=== PATIENT | male | born 1980 | race American Indian/Alaskan Native ===

== ENCOUNTER 2019-07-25 21:42 | Inpatient (IN) | payer MEDICAID ==
--- NOTE | 2019-07-25 21:50 | Consultation ---
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 His main complaint is difficulty breathing and chest pressure. Patient's mother at bedside.Motor deficits are pre-existing and nearly at his baseline. All questions answered. CT head reviewed and case discussed with ED staff. Medications and Allergies Allergies Allergy/AdvReac Type Severity Reaction Status Date / Time No Known Allergies Allergy Verified 01/26/15 00:22 Home Medications Medication Instructions Recorded Confirmed Last Taken Type Docusate Sodium [Colace] 100 mg PO TID #30 capsule 01/26/15 Unknown Rx carBAMazepine XR [TEGretol Xr] 600 mg PO BID 01/26/15 01/26/15 Unknown History levETIRAcetam [Keppra] 500 mg PO BID 01/26/15 01/26/15 Unknown History - Level of Consciousness 1a. Level of Consciousness: alert/keenly responsive - LOC Questions 1b. LOC Questions: answers both correctly - LOC Command 1c. LOC Commands: performs tasks correctly - Best Gaze 2. Best Gaze: normal - Visual 3. Visual: no visual loss - Facial Palsy 4. Facial Palsy: normal symmetrical movement - Motor Arm 5a. Motor Arm Left: no movement 5b. Motor Arm Right: no drift - Motor Leg 6a. Motor Leg Left: drift 6b. Motor Leg Right: no drift - Limb Ataxia 7. Limb Ataxia: absent - Sensory 8. Sensory: normal - Best Language 9. Best Language: no aphasia - Dysarthria 10. Dysarthria: mild/moderate dysarthria - Extinction and Inattention 11. Extinction/Inattention: no abnormality (Motor deficits are at baseline) - Scoring Total Score: 6 Stroke Severity: Moderate Stroke Assessment and Plan [facility] Tele[facility]urology Consult Services Impression: Dyspnea and Chest Pressure. Possible Recrudescence. R/O Stroke Differential Diagnosis: 1. Cardioembolic stroke 2. Small vessel disease/lacune 3. Thromboembolic, [id number] mechanism 4. Hypercoagulable state-related infarct 5. Thrombotic mechanism, large artery disease 6. Transient ischemic attack Comments: Last known well: 1931 Door time:2139 [facility] contacted: 2133 [facility] at bedside: 2135 NIHSS assessment time:2149 Needle time:TPA not considered due to h/o ICH. Motor deficits are pretty much at baseline Thrombectomy not considered since large proximal intracranial vessel occlusion is not suspected Patient was informed the Neurology Consult would happen via TeleHealth consult by way of interactive audio and video telecommunications and consented to receiving care in this manner. Discussion: Our recommendations are outlined below. Recommendations: Chest pain/pressure and Dyspnea work-up as per ED and primary team ASA if no contraindications, IV fluids and permissive hypertension (Keep BP < 220/110) Neurochecks PT/OT/ST DVT prophylaxis Follow up with Neurology for further testing/evaluation Medical Decision Making: - Extensive number of diagnosis or management options are considered above. - Extensive amount of complex data reviewed. - High risk of complication and/or morbidity or mortality are associated with differential diagnostic considerations above. - There may be uncertain outcome and increased probability of prolonged functional impairment or high probability of severe prolonged functional impairment associated with some of these differential diagnosis. Medical Data Reviewed: 1.Data reviewed include clinical labs, radiology, Medical Tests; 2.Tests results discussed w/performing or interpreting physician; 3.Obtaining/reviewing old medical records; 4.Obtaining case history from another source; 5.Independent review of image, tracing or specimen.
--- NOTE | 2019-07-25 22:14 | Cat Scan Report ---
CT head/brain wo con INDICATION: MAIN: CODE STROKE CALL [phone]. TECHNIQUE: Routine CT head without contrast. Sagittal and coronal reformatted images were obtained. A ll CT scans at this location are performed using CT dose reduction for ALARA by means of automated ex posure control. COMPARISON: Previous CT images are not available at this time for comparison. FINDINGS: I do not see hemorrhage (intracerebral, subdural, epidural or subarachnoid) are hemorrhagic lesion. I do not see CT findings to suggest acute territorial infarction. Basal ganglia are normal. I do not s ee CT findings to suggest occluded or thrombosed internal carotid artery terminus and middle cerebral artery. Encephalomalacia is seen in the right superior frontal gyrus. Craniotomy changes are seen. I do not see an acute parenchymal lesion in the brain There may be a small chronic right thalamic lacune. I do not see CT findings to suggest acute finding s in the basal ganglia. CRANIOCERVICAL JUNCTION: No significant abnormality. ORBITS: No significant abnormality of visualized orbits. SINUSES / MASTOIDS: No significant abnormality of the visualized paranasal sinuses or mastoid air esthela ls. ADDITIONAL FINDINGS: None. IMPRESSION: I do not see an acute parenchymal lesion in the brain I have discussed findings with Dr. Ruth at the emergency Department at 9:10 PM CDT. Signer Name: Cesar Sutton MD Signed: 07/25/2019 10:10 PM Workstation Name: [id number]
[2019-07-25 22:24] LABS: Basophils % (Auto) 0.5 % (0.0-1.8); Eosinophils # (Auto) 0.1 K/mm3 (0.0-0.4); Eosinophils % (Auto) 1.8 % (0.0-4.3); Hematocrit 34.4 % (35.5-45.6); Hemoglobin 11.5 gm/dl (11.8-15.2); Lymphocytes # (Auto) 1.2 K/mm3 (1.2-5.4); Lymphocytes % (Auto) 32.5 % (13.4-35.0); Mean Corpuscular HGB Conc 34 % (32-34); Monocytes # (Auto) 0.4 K/mm3 (0.0-0.8); Monocytes % (Auto) 10.5 % (0.0-7.3); Platelet Count 202 K/mm3 (140-440); Red Blood Count 5.14 M/mm3 (3.65-5.03); Red Cell Distribution Width 14.7 % (13.2-15.2)
[2019-07-25 22:43] LABS: Alanine Aminotransferase 13 units/L (7-56); Albumin 4.5 g/dL (3.9-5); BUN/Creatinine Ratio 7; Blood Urea Nitrogen 6 mg/dL (9-20); Hemolysis Index 18; Mean Corpuscular Volume 67 fl (84-94)
[2019-07-25 22:47] LABS: INR 1.16 (0.87-1.13)
[2019-07-25 22:48] LABS: Partial Thromboplastin Time 29.2 Sec. (24.2-36.6); Thrombin Time 16.4 Sec. (15.1-19.6)
--- NOTE | 2019-07-25 22:48 | XRay Report ---
CHEST 1 VIEW INDICATION: vertigo chest pain. COMPARISON: None. FINDINGS: Support devices: None. Heart: Within normal limits. Lungs/Pleura: No acute air space or interstitial disease. Additional findings: None. IMPRESSION: No acute abnormality. Signer Name: Flynn Stuart MD Signed: 07/25/2019 10:44 PM Workstation Name: [id number]
[2019-07-25 23:12] LABS: Creatine Kinase MB < 1.0 ng/mL (0.0-4.0)
[2019-07-25] MEDS ORDERED: NACL 0.9% 1000 ML 1,000 ML ONE (23:27)
[2019-07-25] MEDS ORDERED: NACL 0.9% 1000 ML 1,000 ML IV ONE (23:32)
[2019-07-26] MEDS ORDERED: ASPIRIN PO ONE (00:50)
--- NOTE | 2019-07-26 01:11 | Emergency Department Report ---
ED Neuro Deficit HPI - General Chief Complaint: Dizziness Stated Complaint: POSS STROKE Time Seen by Provider: 07/25/19 21:46 Source: EMS Mode of arrival: Stretcher Limitations: Physical Limitation - History of Present Illness Initial Comments: Mr. Feliz is a 39-year-old male with history of TIA, intracranial hemorrhage 1998, benign intracranial tumor status post craniotomy 2013, seizure disorder presents with slurred speech, dizziness inability to walk. Sudden onset 2 hours prior to arrival. He has been hot. He felt dehydrated. His home has not had air conditioning. He also has shortness of breath as if he could not breathe. Mild chest discomfort. He is followed by Dr. Stevenson radiologist oncologist [place]. He recently moved back to [place] from [place]. He does not have he had a neurologist or primary care physician. He was evaluated twice for TIA this year at hospital in [place]. Mother noticed slurred speech and dizziness sudden onset while talking to her son. She contacted EMS. Has left upper extremity weakness due to previous neurological condition including intracranial hemorrhage, brain tumor craniotomy. -: Sudden, hour(s) (2) Location: speech, ataxia History of same: Yes Place: home Severity: moderate Improves With: time Worsens With: none On Anticoagulants: No Context: sudden onset Associated Symptoms: chest pain, shortness of breath Treatments Prior to Arrival: none - Related Data Home Medications: Home Medications Medication Instructions Recorded Confirmed Last Taken carBAMazepine XR [TEGretol Xr] 600 mg PO BID 01/26/15 01/26/15 Unknown levETIRAcetam [Keppra] 500 mg PO BID 01/26/15 01/26/15 Unknown Previous Rx's Medication Instructions Recorded Last Taken Type Docusate Sodium [Colace] 100 mg PO TID #30 capsule 01/26/15 Unknown Rx Allergies/Adverse Reactions: Allergies Allergy/AdvReac Type Severity Reaction Status Date / Time No Known Allergies Allergy Verified 01/26/15 00:22 ED Review of Systems ROS: Stated complaint: POSS STROKE Other details as noted in HPI Comment: All other systems reviewed and negative Constitutional: malaise. denies: fever Respiratory: shortness of breath Cardiovascular: chest pain Neurological: abnormal gait, vertigo, other (slurred speech) ED Past Medical Hx - Past Medical History Previous Medical History?: Yes (slurred speechslurred speech) Hx CVA: Yes (LEFT SIDE weakness) Hx Seizures: Yes Additional medical history: TUMOR ON BRAIN - Surgical History Past Surgical History?: Yes Additional Surgical History: Brain tumor removal (2013) - Social History Smoking Status: Never Smoker - Medications Home Medications: Home Medications Medication Instructions Recorded Confirmed Last Taken Type Docusate Sodium [Colace] 100 mg PO TID #30 capsule 01/26/15 Unknown Rx carBAMazepine XR [TEGretol Xr] 600 mg PO BID 01/26/15 01/26/15 Unknown History levETIRAcetam [Keppra] 500 mg PO BID 01/26/15 01/26/15 Unknown History ED Neuro Physical Exam - General Limitations: Physical Limitation General appearance: alert, in no apparent distress Suspected Stroke: Yes - Head Head exam: Present: atraumatic, normocephalic - Eye Eye exam: Present: normal appearance - ENT ENT exam: Present: mucous membranes moist - Neck Neck exam: Present: normal inspection, full ROM - Respiratory Respiratory exam: Present: normal lung sounds bilaterally. Absent: respiratory distress, wheezes, rales, rhonchi - Cardiovascular Cardiovascular Exam: Present: regular rate, normal rhythm, normal heart sounds. Absent: systolic murmur, diastolic murmur, rubs, gallop - GI/Abdominal GI/Abdominal exam: Present: soft, normal bowel sounds. Absent: distended, tenderness, guarding, rebound - Rectal Rectal exam: Present: deferred - Extremities Exam Extremities exam: Present: other (LUE contracted) - Back Exam Back exam: Present: normal inspection - Neurological Exam Neurological exam: Present: alert, oriented X3 - NIHSS Assessment Interval: Baseline 1a. Level of Consciousness: alert/keenly responsive 1b. LOC Questions: answers both correctly 1c. LOC Commands: performs tasks correctly 2. Best Gaze: normal 3. Visual: no visual loss 4. Facial Palsy: minor paralysis 5b. Motor Arm Right: no drift 5a. Motor Arm Left: no gravity effort 6a. Motor Leg Left: no drift 6b. Motor Leg Right: no drift 7. Limb Ataxia: absent 8. Sensory: normal 9. Best Language: no aphasia 10. Dysarthria: mild/moderate dysarthria 11. Extinction/Inattention: no abnormality Total Score: 5 Stroke Severity: Moderate Stroke - Psychiatric Psychiatric exam: Present: normal affect, normal mood - Skin Skin exam: Present: warm, dry, intact, normal color. Absent: rash ED Course Vital Signs 07/25/19 07/25/19 07/25/19 22:02 22:09 22:15 Temperature 98.8 F Pulse Rate 84 71 Respiratory 18 14 Rate Blood Pressure 146/98 O2 Sat by Pulse 96 93 Oximetry 07/25/19 07/25/19 07/25/19 22:31 22:45 23:00 Temperature Pulse Rate 89 73 82 Respiratory 18 12 17 Rate Blood Pressure 146/98 146/92 138/97 O2 Sat by Pulse 94 91 94 Oximetry 07/25/19 07/25/19 07/25/19 23:15 23:30 23:45 Temperature Pulse Rate 78 80 68 Respiratory 16 16 16 Rate Blood Pressure 136/95 135/93 129/94 O2 Sat by Pulse 93 95 94 Oximetry 07/26/19 07/26/19 00:00 00:15 Temperature Pulse Rate 70 71 Respiratory 15 16 Rate Blood Pressure 127/90 133/90 O2 Sat by Pulse 97 100 Oximetry - Lab Data Result diagrams: 07/25/19 22:02 07/25/19 22:02 Lab Results 07/25/19 07/25/19 07/25/19 Range/Units 22:02 22:02 22:02 WBC 3.7 L (4.5-11.0) K/mm3 RBC 5.14 H (3.65-5.03) M/mm3 Hgb 11.5 L (11.8-15.2) gm/dl Hct 34.4 L (35.5-45.6) % MCV 67 L (84-94) fl MCH 22 L (28-32) pg MCHC 34 (32-34) % RDW 14.7 (13.2-15.2) % Plt Count 202 (140-440) K/mm3 Lymph % (Auto) 32.5 (13.4-35.0) % Hopkins % (Auto) 10.5 H (0.0-7.3) % Eos % (Auto) 1.8 (0.0-4.3) % Baso % (Auto) 0.5 (0.0-1.8) % Lymph # 1.2 (1.2-5.4) K/mm3 Hopkins # 0.4 (0.0-0.8) K/mm3 Eos # 0.1 (0.0-0.4) K/mm3 Baso # 0.0 (0.0-0.1) K/mm3 Seg Neutrophils % 54.7 (40.0-70.0) % Seg Neutrophils # 2.1 (1.8-7.7) K/mm3 PT 14.5 (12.2-14.9) Sec. INR 1.16 H (0.87-1.13) APTT 29.2 (24.2-36.6) Sec. Thrombin Time 16.4 (15.1-19.6) Sec. Sodium 139 (137-145) mmol/L Potassium 4.0 (3.6-5.0) mmol/L Chloride 100.1 (98-107) mmol/L Carbon Dioxide 25 (22-30) mmol/L Anion Gap 18 mmol/L BUN 6 L (9-20) mg/dL Creatinine 0.9 (0.8-1.5) mg/dL Estimated GFR > 60 ml/min BUN/Creatinine Ratio 7 % Glucose 96 (75-100) mg/dL Calcium 9.0 (8.4-10.2) mg/dL Total Bilirubin 0.20 (0.1-1.2) mg/dL AST 15 (5-40) units/L ALT 13 (7-56) units/L Alkaline Phosphatase 84 (35-129) units/L Total Creatine Kinase 85 (55-170) units/L CK-MB (CK-2) < 1.0 (0.0-4.0) ng/mL CK-MB (CK-2) Rel Index 1.1 (0-4) Troponin T < 0.010 (0.00-0.029) ng/mL Total Protein 7.5 (6.3-8.2) g/dL Albumin 4.5 (3.9-5) g/dL Albumin/Globulin Ratio 1.5 % - EKG Data EKG shows normal: sinus rhythm, axis, intervals, QRS complexes, ST-T waves Rate: normal - Radiology Data Radiology results: report reviewed CT head: No acute parenchymal lesion in brain, there is encephalomalacia in the right superior frontal gyrus with craniotomy changes no evidence of hemorrhage or CT findings to suggest acute territorial infarction A portable chest x-ray: No acute abnormality - Medical Decision Making Mr. Feliz is a 39-year-old male history of TIA, seizure disorder, craniotomy, benign tumor and intracranial hemorrhage or presents with slurred speech and dizziness and inability to walk. He has baseline left upper extremity weakness. Chest pain shortness of breath unclear cause must consider ACS. PERC negative for pulmonary embolism. I do not suspect emergent cause of chest pain such as aortic dissection or pneumothorax. Chest pain is atypical for ACS. Prior to arrival, code stroke initiated. I evaluated patient alongside Teleneurologist Dr. Burns. Dr. Burns did not suspect large vessel occlusion. He was concerned for toxic metabolic process complicating baseline neuro deficits. I agree with this assessment. Clinical impression: TIA. I reassessed the patient prior to admission, he is back to baseline. His speech is more clear than prior. Mother states that he is back to normal. He received aspirin therapy. Due to history of intracranial hemorrhage and craniotomy, TPA is not indicated. Due to resolve symptoms TPA is not indicated. Admitted to the hospitalist service for further treatment and evaluation. - Thrombolytic Inclusion/Exclusion Thrombolytic Contraindications: Rapidily Improving s/s, Hx of ICH/AVM/Aneurysms Critical care attestation.: If time is entered above; I have spent that time in minutes in the direct care of this critically ill patient, excluding procedure time. ED Disposition Clinical Impression: TIA (transient ischemic attack), Chest pain, Seizure disorder Disposition: OP ADMIT IP TO THIS HOSP Is pt being admited?: Yes Does the pt Need Aspirin: No Condition: Stable
[2019-07-26] MEDS ORDERED: TYLENOL PO PRN (01:58)
--- NOTE | 2019-07-26 04:35 | History and Physical Report ---
CHIEF COMPLAINT: Dizziness, other complaint includes shortness of breath and unsteady gait. HISTORY OF PRESENT ILLNESS: The patient is a 39-year-old male with past medical history of TIA, intracranial hemorrhage in 1998 and benign intracranial tumor status post craniotomy in 2013. Also, the patient has past medical history of seizure disorder and presented with dizziness and unsteady gait that started last night. Also, there was history of slurred speech and difficulty with breathing and the patient's mother said that the patient could not walk without feeling like falling down and his speech was slurred and the patient was feeling very weak with dizziness and was complaining seriously about difficulty in breathing. The patient denied history of chest pain and denied history of nausea, vomiting or diaphoresis and was brought to the Emergency Room. PAST MEDICAL HISTORY: Pertinent for TIA, intracranial hemorrhage in 1998, benign intracranial tumor in 2013, seizure disorder and speech impairment. PAST SURGICAL HISTORY: Pertinent for craniotomy with tumor removal in 2013. FAMILY HISTORY: Noncontributory. SOCIAL HISTORY: The patient does not smoke, does not drink alcohol and does not use illicit drugs. MEDICATIONS: The patient is on Keppra 500 mg by mouth daily, Tegretol 600 mg by mouth daily and docusate sodium 100 mg by mouth 3 times daily. ALLERGIES: There are no known drug allergies. REVIEW OF SYSTEMS: CONSTITUTIONAL: There is no fever, no chills, no diaphoresis. HEENT: There is no headache or sore throat. CARDIOVASCULAR SYSTEM: There is no chest pain or orthopnea. RESPIRATORY SYSTEM: Shortness of breath is present. No cough. GASTROINTESTINAL SYSTEM: There is no nausea, no vomiting, no abdominal pain, diarrhea or constipation. NEUROLOGICAL SYSTEM: Dizziness present. Unsteady gait present, speech impairment or slurred speech present, generalized weakness noted. No altered mental status. MUSCULOSKELETAL SYSTEM: There is no joint pain or swelling. DERMATOLOGICAL SYSTEM: There is no skin rash or itching. GENITOURINARY SYSTEM: There is no dysuria, hematuria, or flank pain. Rest of system review is normal. PHYSICAL EXAMINATION: GENERAL: At the time of exam, the patient was found to be alert, oriented x 3 and able to talk and communicate and was not in acute distress. VITAL SIGNS: At the initial time of presentation showed temperature of 98.8 degrees Fahrenheit, pulse of 84, respirations 18, blood pressure 146/98, O2 sat of 96% on room air. HEENT: Showed pupils to be equal, round, reactive to light and accommodating. Extraocular muscles are intact. NECK: Supple with no JVD or carotid bruit. CARDIOVASCULAR SYSTEM: Showed normal first and second heart sounds with no gallops or murmurs. RESPIRATORY SYSTEM: Showed good air entry on both sides of the lungs with no abnormal breath sounds. GASTROINTESTINAL SYSTEM: Show abdomen to be full, soft, nontender with no organomegaly or rigidity. NEUROLOGIC: Shows the patient to be alert, oriented x 3, able to communicate with mild weakness on the left side compared to the right, which is chronic with muscle of grade 5/6 on the left upper and lower limbs compared to grade 6/6 on the right upper and lower limbs. There is no loss of sensory function. MUSCULOSKELETAL SYSTEM: Show no joint swelling or tenderness. DERMATOLOGICAL SYSTEM: Showed no skin rash. GENITOURINARY SYSTEM: Show no costovertebral angle tenderness. PERTINENT LABORATORY AND IMAGING STUDIES: The patient has CT of the head without contrast done that shows no acute intracranial lesion. Also, the patient had chest x-ray done that shows no acute abnormality. The patient's lab result shows CBC with low white count of 3700, slightly low hemoglobin of 11.5 and slightly low hematocrit of 34.4 with low MCV of 67. The patient's CBC differential shows slight increase in monocyte count of 10.5%. Coagulation studies were unremarkable. The patient's chemistry came back unremarkable. Cardiac enzyme was normal. DIAGNOSES: 1. Transient ischemic attack. 2. Dyspnea. PLAN OF CARE: 1. The patient will be admitted to telemetry. 2. The patient will have MRI of the brain without contrast. 3. The patient will have bilateral carotid Doppler done this morning and also have 2D echo done this morning. 4. The patient will have Neurology consult with Dr. Ruslan Dunne and will have physical therapy and speech therapy evaluation. 5. The patient will be n.p.o. until swallow test is passed. 6. The patient will have cardiac enzymes checked serially every 6 hours x 2 more levels. 7. The patient will be on aspirin 325 mg by mouth daily and will be on his home medication as shown in the medication reconciliation section. 8. The patient will be on oxygen by nasal cannula at 2 liters per minute and DVT prophylaxis will be through sequential compressive device. [facility]# [id number] OCN/NTS
[2019-07-26 06:45] LABS: Creatine Kinase MB < 1.0 ng/mL (0.0-4.0)
[2019-07-26] MEDS: COLACE PO SCH ×3 (08:00→21:54)
[2019-07-26] MEDS ORDERED: ASPIRIN PO SCH (10:00)
[2019-07-26] MEDS ORDERED: KEPPRA PO SCH (10:00)
[2019-07-26] MEDS: NON-FORMULARY PO SCH ×4 (10:15→21:55)
[2019-07-26 13:36] LABS: Chol/HDL Ratio 3.03 %
[2019-07-26 13:38] LABS: Creatine Kinase MB < 1.0 ng/mL (0.0-4.0)
--- NOTE | 2019-07-26 15:58 | Event Note ---
Date: 07/26/19 Patient with slurred speech, dizziness, unsteady gait. I have seen and examined him. For MRI Brain.
--- NOTE | 2019-07-26 17:21 | Consultation ---
History of Present Illness Consult date: 07/26/19 Reason for Consult: Possible TIA Chief complaint: Slurred speech, imbalanced gait, SOB. 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 He presents yesterday with acute onset of sensation of hot flashes, shortness of breath, associated with slurred speech, dizziness, and unsteady gait. The symptoms lasted for about 2 hours. The patient was then brought to the emergency room by his mother. He states that he has been compliant with his antiseizure medications. Patient states that he attempted to walk today, and that he continues to have some element of unsteadiness in gait. Past History Past Medical History: other (history of ICH in 1998 with residual left-sided hemiparesis, history of seizures on Keppra and Tegretol, history of benign brain tumor status post resection) Social history: lives with family Family history: no significant family history Medications and Allergies Allergies Allergy/AdvReac Type Severity Reaction Status Date / Time No Known Allergies Allergy Verified 01/26/15 00:22 Home Medications Medication Instructions Recorded Confirmed Last Taken Type levETIRAcetam [Keppra] 500 mg PO BID 01/26/15 07/26/19 Unknown History carBAMazepine XR [TEGretol XR] 400 mg PO Q12H 07/26/19 07/26/19 Unknown History Active Meds: Active Medications Acetaminophen (Tylenol) 650 mg PO Q4H PRN PRN Reason: Headache Aspirin (Aspirin) 325 mg PO QDAY [facility] Last Admin: 07/26/19 10:16 Dose: 325 mg Documented by: Docusate Sodium (Colace) 100 mg PO TID [facility] Last Admin: 07/26/19 13:24 Dose: 100 mg Documented by: Miscellaneous Medication (Non-Formulary) 1 each PO BID [facility] Last Admin: 07/26/19 10:15 Dose: 1 each Documented by: Miscellaneous Medication (Non-Formulary) 1 each PO Q12H [facility] Last Admin: 07/26/19 10:15 Dose: 1 each Documented by: Review of Systems All systems: negative Respiratory: shortness of breath Neurological: vertigo, change in speech, gait dysfunction Physical Examination - Vital Signs Vital Signs: Vital Signs Pulse Resp Pulse Ox 84 18 96 07/25/19 22:02 07/25/19 22:02 07/25/19 22:02 - Physical Exam Narrative exam: Patient is awake, alert, oriented to self, place, situation. Pupils are equal, round, reactive to light. Visual brock full. Tongue midline, no facial asymmetry noted. Sensation bilaterally intact to light touch in the face. Patient noted to have baseline of left upper and lower extremity weakness, left upper extremity strength is 2 out of 5, left lower extremity is 4/5, right upper and lower extremities are 5 out 5. Patient noted to have contracture left upper extremity. 3+ reflexes in left upper and lower extremity, 2+ reflexes in right upper and lower extremity. Sensations bilaterally intact light touch. Finger to nose intact and right upper extremity. Unable to do [id number] on the left due to left upper extremity contracture. Patient noted have surgical scar on right scalp. - Constitutional General appearance: comfortable - EENT EENT: Present: ATNC, PERRL, mucous membranes moist, hearing intact, vision intact - Respiratory Respiratory: Present: lungs clear, normal breath sounds - Cardiovascular Cardiovascular: Present: regular rate, normal S1, normal S2 Extremities: Present: no peripheral edema bilatateraly, no clubbing, cyanosis - Gastrointestinal Gastrointestinal: Present: normoactive bowel sounds, soft, non-tender - Integumentary Integumentary: Present: normal - Psychiatric Psychiatric: Present: mood/affect appropriate Results - Laboratory Findings CBC and BMP: 07/25/19 22:02 07/25/19 22:02 Abnormal Lab Findings: Abnormal Labs 07/25/19 07/25/19 07/25/19 22:02 22:02 22:02 WBC 3.7 L RBC 5.14 H Hgb 11.5 L Hct 34.4 L MCV 67 L MCH 22 L [place] % (Auto) 10.5 H INR 1.16 H BUN 6 L Assessment and Plan Patient is a 39-year-old man with a 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 He presents yesterday with acute onset of sensation of hot flashes, shortness of breath, associated with slurred speech, dizziness, and unsteady gait. According the patient's clinical findings, it is possible that he has had a TIA or an acute ischemic stroke, however the patient was also noted to have shortness of breath and a hot flash during the episode. He states that he was feeling dehydrated at the time. Investigations for further diagnosis oriented to be done. Plan: 1. Possible TIA/stroke: - Check MRI brain - Check MRA head/neck - Cont. ASA 81mg daily. - LDL 109. Start lipitor 10mg daily with LDL goal <70. - Recommend PT/OT/ST - DVT Ppx: recommend lovenox. - Telemetry monitoring while in-house. Echocardiogram: Ejection fraction 50-55%, left atrium normal size, PFO positive on bubble study. 2. History of seizures: - Cont. home doses of keppra and tegretol. - Will continue to follow patient. Thank you for allowing me to take part in the care of this patient. Ruslan Dunne MD Neurology
--- NOTE | 2019-07-26 18:55 | Vascular Lab Report ---
"DUPLEX DOPPLER ULTRASOUND CAROTID, BILATERAL INDICATION: TIA. FINDINGS: RIGHT CAROTID: Minimal plaque identified Right CCA velocity: 65 cm/sec. Right ICA peak systolic velocity: 58 cm/sec. ICA/CCA PSV Ratio: 0.89. Right Vertebral Artery: Antegrade flow. LEFT CAROTID: Minimal plaque identified Left CCA velocity: 87 cm/sec. Left ICA peak systolic velocity: 59 cm/sec. ICA/CCA PSV Ratio: 0.68. Left Vertebral Artery: Antegrade flow. IMPRESSION: 1. Right Internal Carotid Artery: Less than 50% diameter stenosis. 2. Left Internal Carotid Artery: Less than 50% diameter stenosis. Velocity criteria are extrapolated from diameter data as defined by the Society of Radiologists in Ul trasound Consensus Conference, Radiology 2003; 229;340-346. Degree of Stenosis (%) || ICA PSV (cm/sec) || Plaque estimate (%) || ICA/CCA PSV Ratio Normal <125 None <2.0 <50 <125 <50 <2.0 50-69 125-230 50 2.0-4.0 70 but less than 100 >230 50 >4.0 Near occlusion High, low, or none visible variable Total occlusion None visible; no lumen N/A Signer Name: Ivan Connor MD Signed: 07/26/2019 6:50 PM Workstation Name: [id number]"
[2019-07-27] MEDS: COLACE PO SCH ×2 (09:46→16:23)
[2019-07-27] MEDS: NON-FORMULARY PO SCH ×2 (09:46→09:47)
[2019-07-27] MEDS ORDERED: HALFPRIN EC PO SCH (10:00)
[2019-07-27] MEDS ORDERED: ATIVAN IV ONE (13:08)
--- NOTE | 2019-07-27 14:59 | Progress Note ---
Hospitalist Physical - Constitutional Vitals: Temp Pulse Resp BP Pulse Ox 97.7 F 61 18 124/90 99 07/27/19 06:24 07/27/19 06:24 07/27/19 06:24 07/27/19 06:24 07/27/19 06:24 Results - Labs CBC & Chem 7: 07/25/19 22:02 07/25/19 22:02 Labs: Laboratory Last Values WBC 3.7 K/mm3 (4.5-11.0) L 07/25/19 22:02 RBC 5.14 M/mm3 (3.65-5.03) H 07/25/19 22:02 Hgb 11.5 gm/dl (11.8-15.2) L 07/25/19 22:02 Hct 34.4 % (35.5-45.6) L 07/25/19 22:02 MCV 67 fl (84-94) L 07/25/19 22:02 MCH 22 pg (28-32) L 07/25/19 22:02 MCHC 34 % (32-34) 07/25/19 22:02 RDW 14.7 % (13.2-15.2) 07/25/19 22:02 Plt Count 202 K/mm3 (140-440) 07/25/19 22:02 Lymph % (Auto) 32.5 % (13.4-35.0) 07/25/19 22:02 [place] % (Auto) 10.5 % (0.0-7.3) H 07/25/19 22:02 Eos % (Auto) 1.8 % (0.0-4.3) 07/25/19 22:02 Baso % (Auto) 0.5 % (0.0-1.8) 07/25/19 22:02 Lymph # 1.2 K/mm3 (1.2-5.4) 07/25/19 22:02 [place] # 0.4 K/mm3 (0.0-0.8) 07/25/19 22:02 Eos # 0.1 K/mm3 (0.0-0.4) 07/25/19 22:02 Baso # 0.0 K/mm3 (0.0-0.1) 07/25/19 22:02 Seg Neutrophils % 54.7 % (40.0-70.0) 07/25/19 22:02 Seg Neutrophils # 2.1 K/mm3 (1.8-7.7) 07/25/19 22:02 PT 14.5 Sec. (12.2-14.9) 07/25/19 22:02 INR 1.16 (0.87-1.13) H 07/25/19 22:02 APTT 29.2 Sec. (24.2-36.6) 07/25/19 22:02 16.4 Sec. (15.1-19.6) 07/25/19 22:02 Sodium 139 mmol/L (137-145) 07/25/19 22:02 Potassium 4.0 mmol/L (3.6-5.0) 07/25/19 22:02 Chloride 100.1 mmol/L (98-107) 07/25/19 22:02 Carbon Dioxide 25 mmol/L (22-30) 07/25/19 22:02 18 mmol/L 07/25/19 22:02 BUN 6 mg/dL (9-20) L 07/25/19 22:02 0.9 mg/dL (0.8-1.5) 07/25/19 22:02 Estimated GFR > 60 ml/min 07/25/19 22:02 7 % 07/25/19 22:02 Glucose 96 mg/dL (75-100) 07/25/19 22:02 Calcium 9.0 mg/dL (8.4-10.2) 07/25/19 22:02 0.20 mg/dL (0.1-1.2) 07/25/19 22:02 AST 15 units/L (5-40) 07/25/19 22:02 ALT 13 units/L (7-56) 07/25/19 22:02 84 units/L (35-129) 07/25/19 22:02 80 units/L (55-170) 07/26/19 12:52 CK-MB (CK-2) < 1.0 ng/mL (0.0-4.0) 07/26/19 12:52 CK-MB (CK-2) Rel Index 1.2 (0-4) 07/26/19 12:52 < 0.010 ng/mL (0.00-0.029) 07/26/19 12:52 7.5 g/dL (6.3-8.2) 07/25/19 22:02 4.5 g/dL (3.9-5) 07/25/19 22:02 1.5 % 07/25/19 22:02 Triglycerides 123 mg/dL (2-149) 07/26/19 12:52 Cholesterol 167 mg/dL (50-199) 07/26/19 12:52 109 mg/dL (50-130) 07/26/19 12:52 55 mg/dL (40-59) 07/26/19 12:52 3.03 % 07/26/19 12:52 Active Medications - Current Medications Current Medications: Generic Name Dose Route Start Last Admin Trade Name Freq PRN Reason Stop Dose Admin Acetaminophen 650 mg 07/26/19 01:58 Tylenol PO Q4H PRN Headache Aspirin 81 mg 07/27/19 10:00 07/27/19 09:46 Halfprin Ec PO 81 mg QDAY JACKELINE Administration Atorvastatin Calcium 10 mg 07/26/19 22:00 07/26/19 21:54 Lipitor PO 10 mg QHS JACKELINE Administration Docusate Sodium 100 mg 07/26/19 08:00 07/27/19 09:46 Colace PO 100 mg TID JACKELINE Administration Miscellaneous Medication 1 each 07/26/19 10:00 07/27/19 09:46 Non-Formulary PO 1 each BID [facility] Administration Miscellaneous Medication 1 each 07/26/19 10:00 07/27/19 09:47 Non-Formulary PO 1 each Q12H [facility] Administration
--- NOTE | 2019-07-27 15:31 | Progress Note ---
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 He presents yesterday with acute onset of sensation of hot flashes, shortness of breath, associated with slurred speech, dizziness, and unsteady gait. According the patient's clinical findings, it is possible that he has had a TIA or an acute ischemic stroke, however the patient was also noted to have shortness of breath and a hot flash during the episode. He states that he was feeling dehydrated at the time. Investigations for further diagnosis oriented to be done. Plan: 1. Possible TIA/stroke: - MRI brain did not reveal any evidence of infarct - MRA head/neck did not reveal any significant stenosis. - Cont. ASA 81mg daily. - LDL 109. Start lipitor 10mg daily with LDL goal <70. - Recommend PT/OT/ST - DVT Ppx: recommend lovenox. - Telemetry monitoring while in-house. Echocardiogram: Ejection fraction 50-55%, left atrium normal size, PFO positive on bubble study. 2. History of seizures: - Cont. keppra and tegretol. - Will consider increasing dose of keppra to 750mg BID, as episode may have been partial seizure as opposed to TIA. - Will continue to follow patient. Thank you for allowing me to take part in the care of this patient. Ruslan Dunne MD Neurology Subjective Date of service: 07/27/19 Principal diagnosis: Possible TIA Interval history: No acute events overnight. Patient feels back at baseline today. Objective - Exam Narrative Exam: Patient is awake, alert, oriented to self, place, situation. Pupils are equal, round, reactive to light. Visual brock full. Tongue midline, no facial asymmetry noted. Sensation bilaterally intact to light touch in the face. Patient noted to have baseline of left upper and lower extremity weakness, left upper extremity strength is 2 out of 5, left lower extremity is 4/5, right upper and lower extremities are 5 out 5. Patient noted to have contracture left upper extremity. 3+ reflexes in left upper and lower extremity, 2+ reflexes in right upper and lower extremity. Sensations bilaterally intact light touch. Finger to nose intact and right upper extremity. Unable to do [id number] on the left due to left upper extremity contracture. Patient noted have surgical scar on right scalp. - Vital Sign Vital Signs - 12hr 07/27/19 06:24 Temperature 97.7 F Pulse Rate 61 Respiratory 18 Rate Blood Pressure 124/90 O2 Sat by Pulse 99 Oximetry - General Apperance Constitutional: comfortable - EENT EENT: ATNC, PERRL, mucous membranes moist, hearing intact, vision intact - Respiratory Respiratory: lungs clear, normal breath sounds - Cardiovascular Cardiovascular: regular rate, normal S1, normal S2 Extremities: no peripheral edema bilat, no clubbing, cyanosis - Gastrointestinal Gastrointestinal: normoactive bowel sounds, soft, non-tender - Integumentary Integumentary: normal - Musculoskeletal Musculoskeletal: no fluid collection, no pain - Psychiatric Psychiatric: mood/affect appropriate - Laboratory Findings CBC and BMP: 07/25/19 22:02 07/25/19 22:02 Abnormal Lab Findings: Abnormal Labs 07/25/19 07/25/19 07/25/19 22:02 22:02 22:02 WBC 3.7 L RBC 5.14 H Hgb 11.5 L Hct 34.4 L MCV 67 L MCH 22 L [place] % (Auto) 10.5 H INR 1.16 H BUN 6 L
[2019-07-27] MEDS ORDERED: KEPPRA PO SCH (16:00)
--- NOTE | 2019-07-27 16:22 | Magnetic Resonance Report ---
MRI BRAIN WITHOUT CONTRAST INDICATION / CLINICAL INFORMATION: Transient ischemic attack.. TECHNIQUE: Multiplanar, multisequence MR images of the brain were obtained. COMPARISON: None available. FINDINGS: BRAIN / INTRACRANIAL CONTENTS: There is a high right craniotomy defect with underlying encephalomalac ia and ex vacuo dilatation of the right lateral ventricle. There appear to be interval evolutionary p ostsurgical changes from the previous MRI of 10/06/2011. However, there is a residual component of sandra rrounding gliosis there are also appear to be mild residual changes within the medial right thalamus. The brain otherwise appears to demonstrate appropriate signal characteristics for age. The diffusion imaging reveals no evidence of recent infarction. The ventricular system is otherwise appropriate in size and configuration. No developing extra-axial fluid collections are identified. There is subtle increased T1 weighted signal symmetrically within the medial cerebellum as well as th e inferior basal ganglia. The findings are nonspecific though may be related to mineral deposition. T he findings may also be seen with hepatic failure and long-term parenteral nutrition. CRANIOCERVICAL JUNCTION: No significant abnormality. VASCULAR FLOW-VOIDS: No significant abnormality. ORBITS: No significant abnormality of visualized orbits. SINUSES / MASTOIDS: No significant abnormality of the visualized paranasal sinuses or mastoid air esthela ls. ADDITIONAL FINDINGS: None. IMPRESSION: 1. Status post high right frontal craniotomy with underlying encephalomalacia which has evolved from the previous MRI of 10/06/2011. There is no evidence of recent infarction. Signer Name: Eric Gilman MD Signed: 07/27/2019 4:18 PM Workstation Name: [id number]
--- NOTE | 2019-07-27 16:27 | Magnetic Resonance Report ---
MRA head without contrast CLINICAL HISTORY: Transient ischemic attack, dizziness, unable to walk. FINDINGS: No previous exams are available for comparison. The motion degrades image quality. However, the intracranial vessels appear to demonstrate appropriate caliber without clear evidence of signifi cant focal stenosis by NASCET criteria. There appears be a smaller branch of vessel of the origin of the A1 segment of the left LESTER. Otherwise, there is no definitive MRA evidence of intracranial aneury sm. IMPRESSION: The motion degrades the image quality. However, the MRA of the head appears unremarkable without sign ificant focal stenosis involving intracranial vessels. Signer Name: Eric Gilman MD Signed: 07/27/2019 4:23 PM Workstation Name: [id number]
--- NOTE | 2019-07-27 16:29 | Magnetic Resonance Report ---
MR a neck without contrast CLINICAL HISTORY: Transient ischemic attack, dizziness, difficulty walking at. FINDINGS: No previous exams available for comparison. 3-D [id number] MRA of the neck was performe d at. There is no evidence of significant stenosis involving visualized carotid arteries by NASCET cr iteria. The vertebral arteries also demonstrate appropriate caliber without significant focal narrowi ng. IMPRESSION: There is no MRA evidence of significant stenosis involving the visualized carotid or vertebral arteri es at. Signer Name: Eric Gilman MD Signed: 07/27/2019 4:25 PM Workstation Name: [email or web address]
--- NOTE | 2019-07-27 17:02 | Discharge Summary ---
Providers - Providers Date of Admission: 07/26/19 01:50 Date of discharge: 07/27/19 Attending physician: DAVID GONZÁLES 07/26/19 06:00 Consult to Physician [CONS] Routine Comment: Consulting Provider: OSCAR REYES Physician Instructions: Reason For Exam: TIA Physical Therapy Evaluation and Treat [CONS] Routine Comment: Reason For Exam: TIA Speech Therapy Evaluation and Treat [CONS] Routine Reason For Exam: TIA Primary care physician: [facility] MD ALEXIA Hospitalization Condition: Fair Disposition: DC-01 TO HOME OR SELFCARE Core Measure Documentation - Palliative Care Palliative Care/ Comfort Measures: Not Applicable Exam - Constitutional Vitals: Temp Pulse Resp BP Pulse Ox 97.7 F 61 18 124/90 99 07/27/19 06:24 07/27/19 06:24 07/27/19 06:24 07/27/19 06:24 07/27/19 06:24 Plan Activity: advance as tolerated Diet: low fat, low cholesterol, low salt Plan of Treatment: 1.Follow up with PCP in 1 week. 2.Follow up with Neurologist in 1 week Follow up with: EDWIN MIKE MD [Primary Care Provider] - 7 Days Prescriptions: Aspirin EC [Halfprin EC] 81 mg PO QDAY #30 tablet. levETIRAcetam [Keppra TAB] 750 mg PO BID #60 tablet Other Discharge Orders: Physicial Therapy (Amb) Location: None Selected
[2019-07-27 18:02] VITALS: BP 130/88
== END 2019-07-27 19:50 | disposition home or self-care (01) | DRG 69 ==
LOC: ED 21:42 → 3A 07-26 01:50
PROVIDERS: ADMIT Internal Medicine; ATTEND Internal Medicine
DX: G45.9 Transient cerebral ischemic attack, unspecified (principal); G40.909 Epilepsy, unspecified, not intractable, without status epilepticus; R07.9 Chest pain, unspecified; Z86.011 Personal history of benign neoplasm of the brain; I69.154 Hemiplegia and hemiparesis following nontraumatic intracerebral hemorrhage affecting left non-dominant side
CPT/HCPCS: 36415; 70450; 70544; 70547; 70551; 71045; 80053; 80061; 82550; 82553; 84484; 85025; 85610; 85670; 85730; 93005; 93010; 93306; 93880; G0378; A9270-GY; J2060; J7030